=== PATIENT | female | born 1990 | race Caucasian/White ===

== ENCOUNTER 2021-12-09 12:46 | Emergency (ER) | payer MEDICAID ==
[~2021-12-09] VITALS: Ht 152.4 cm; Wt 54.4 kg
[2021-12-09 12:47] VITALS: BP_SYST 131
--- NOTE | 2021-12-09 12:47 | NUR ---
Patient to ER bed 2 to gown for evaluation. Side rails up. Report given to Yelena.
--- NOTE | 2021-12-09 12:47 | NUR ---
pt. came in byself from home with c/o intermittent chest pain x 1 week that goes up to 8, currently 2/10, accompanied by numbing/tingling to left arm and nausea, pain last about 2 minutes at a time, no hx. of cardiac problems or HTN
--- NOTE | 2021-12-09 13:09 | NUR ---
DR MORALES AT BEDSIDE FOR EXAM.
[2021-12-09] MEDS ORDERED: IBUP-1969 PO (13:46)
--- NOTE | 2021-12-09 14:00 | NUR ---
Patient given written and verbal discharge instructions and verbalizes understanding. ER MD discussed with patient the results and treatment provided. Patient in stable condition. ID arm band removed. Rx of ibuprofen given. Patient educated on pain management and to follow up with PMD. Pain Scale . Opportunity for questions provided and answered. Medication side effect fact sheet provided.
[2021-12-09 14:05] VITALS: BP_SYST 117
== END 2021-12-09 14:00 | disposition home or self-care (01) ==
LOC: SED 12:46
DX: R07.89 Other chest pain (principal)
CPT/HCPCS: 71045; 93005; 99283